=== PATIENT | female | born 1940 | race Caucasian/White ===

== ENCOUNTER 2016-12-24 09:09 | Observation (INO) | payer OTHER ==
[~2016-12-24 09:09] MED LIST: AREDS PO; DILT-XR180 MG PO; DILT-XR240 MG PO; ELIQUIS 5 MG TAB5 MG PO; L20 PO; NEUR100 PO; PRESERVISION A1 EAC1 PO; PRIN5 PO
[2016-12-24 10:00] LABS: BASOPHILS 0.5 %; BASOPHILS ABSOLUTE 0.02 10/3/uL (0.0-0.16); EOSINOPHILS 0.5 %; EOSINOPHILS ABSOLUTE 0.02 10/3/uL (0.0-0.53); HEMATOCRIT 40.6 % (36.0-48.0); HEMOGLOBIN 13.6 g/dL (12.0-16.0); IMMATURE GRANULOCYTES 0.2 %; IMMATURE GRANULOCYTES ABSOLUTE 0.01 10/3/uL (0.0-0.11); LYMPHOCYTES ABSOLUTE 1.15 10/3/uL (0.67-4.30); MEAN CORPUS HGB CONC 33.5 g/dL (32.0-36.0); MEAN CORPUSCULAR HEMOGLOB 31.8 pg (26.0-34.0); MEAN CORPUSCULAR VOLUME 94.9 fL (80-100); MEAN PLATELET VOLUME 9.5 fL (9.2-13.0); MONOCYTES 12.9 %; MONOCYTES ABSOLUTE 0.57 10/3/uL (0.21-1.20); NEUTROPHILS 59.9 %; NEUTROPHILS ABSOLUTE 2.66 10/3/uL (2.02-8.40); PLATELET COUNT 191 10/3/uL (150-400); RBC DISTRIBUTION WIDTH 13.5 % (12.0-16.0); RED CELL COUNT 4.28 10/6/uL (4.0-5.6); WHITE BLOOD CELLS 4.4 10/3/uL (4.5-10.5)
[2016-12-24 10:01] LABS: MANUAL DIFF NO %
[2016-12-24 10:18] LABS: BUN (BLOOD UREA NITROGEN) 11 MG/DL (6-23); CALCIUM, SERUM 8.8 MG/DL (8.5-10.4); CHLORIDE, SERUM 106 MMOL/L (96-112); CHOL/HDL RATIO(NOT ORDER) 2.8 (0-5); CHOLESTEROL 181 MG/DL (< 200); CO2 (CARBON DIOXIDE) 27 MMOL/L (24-34); CREATININE 0.56 MG/DL (0.55-1.02); GFR AFRICAN AMERICAN 105 ML/MIN (>=60); GFR NON AFRICAN AMERICAN 91 ML/MIN (>=60); GLUCOSE, SERUM 97 MG/DL (60-99); HDL CHOLESTEROL 64 MG/DL (> 49); LDL CHOLESTEROL 90 MG/DL (< 130); NON-HDL CHOLESTEROL 117 MG/DL (< 160); POTASSIUM, SERUM 3.9 MMOL/L (3.5-5.3); SODIUM, SERUM 141 MMOL/L (135-148); TRIGLYCERIDE 135 MG/DL (< 150)
[2016-12-25] MEDS ORDERED: CARDIZEM LA360 MG PO (10:44)
== END 2016-12-25 14:15 | disposition home or self-care (01) ==
LOC: CORLMH 09:09 → SSU1 09:27
PROVIDERS: Internal Medicine Interventional Cardiology
DX: I34.0 Nonrheumatic mitral (valve) insufficiency (principal); I50.32 Chronic diastolic (congestive) heart failure; I48.2 Chronic atrial fibrillation; I11.0 Hypertensive heart disease with heart failure; Z79.01 Long term (current) use of anticoagulants; Z79.899 Other long term (current) drug therapy
CPT/HCPCS: 80048; 80061; 82803; 85025; 93005; 93460; 99152; 99153; A9270-GY; C1769; C1894; G0378; J2250; J3010; Q9967

== ENCOUNTER 2017-03-08 05:11 | Inpatient (IN) | payer OTHER, SELFPAY ==
[2017-03-04 15:39] LABS: BASOPHILS 0.4 %; BASOPHILS ABSOLUTE 0.02 10/3/uL (0.0-0.16); EOSINOPHILS 0.6 %; EOSINOPHILS ABSOLUTE 0.03 10/3/uL (0.0-0.53); HEMATOCRIT 39.4 % (36.0-48.0); IMMATURE GRANULOCYTES 0.2 %; IMMATURE GRANULOCYTES ABSOLUTE 0.01 10/3/uL (0.0-0.11); LYMPHOCYTES 33.5 %; LYMPHOCYTES ABSOLUTE 1.81 10/3/uL (0.67-4.30); MANUAL DIFF NO %; MEAN CORPUSCULAR HEMOGLOB 31.4 pg (26.0-34.0); MEAN CORPUSCULAR VOLUME 95.2 fL (80-100); MEAN PLATELET VOLUME 9.7 fL (9.2-13.0); MONOCYTES 12.6 %; MONOCYTES ABSOLUTE 0.68 10/3/uL (0.21-1.20); NEUTROPHILS 52.7 %; NEUTROPHILS ABSOLUTE 2.86 10/3/uL (2.02-8.40); PLATELET COUNT 206 10/3/uL (150-400); RBC DISTRIBUTION WIDTH 13.4 % (12.0-16.0); RED CELL COUNT 4.14 10/6/uL (4.0-5.6); WHITE BLOOD CELLS 5.4 10/3/uL (4.5-10.5)
[2017-03-04 15:42] LABS: INTERNATIONAL NORMAL RATI 1.1 UNITS (-); PROTIME (NOT ORD) 14.4 SEC (12.0-14.5)
[2017-03-04 15:52] LABS: % IRON SAT 21 % (20-50); ALBUMIN 3.8 G/DL (3.5-5.0); ALKALINE PHOSPHATASE 98 U/L (45-117); BUN (BLOOD UREA NITROGEN) 15 MG/DL (6-23); CALCIUM, SERUM 8.8 MG/DL (8.5-10.4); CHLORIDE, SERUM 106 MMOL/L (96-112); CO2 (CARBON DIOXIDE) 29 MMOL/L (24-34); GFR AFRICAN AMERICAN 98 ML/MIN (>=60); GFR NON AFRICAN AMERICAN 84 ML/MIN (>=60); GLOBULIN 3.8 G/DL (2.5-4.1); GLUCOSE, SERUM 95 MG/DL (60-99); IRON BINDING CAPACITY 337 MCG/DL (225-410); IRON, SERUM 70 MCG/DL (35-150); POTASSIUM, SERUM 3.8 MMOL/L (3.5-5.3); SGOT(AST) 20 U/L (5-40); SGPT(ALT) 20 U/L (5-65); SODIUM, SERUM 142 MMOL/L (135-148); TOTAL BILIRUBIN 0.3 MG/DL (0-1.2); TOTAL PROTEIN 7.6 G/DL (6.0-8.5)
[2017-03-04 16:48] LABS: ASCORBIC ACID (UR NOT ORDER) 40 (NEG); BILIRUBIN, URINE NEGATIVE (NEG); KETONE, URINE NEGATIVE (NEG); LEUKOCYTE ESTERASE(NOT OR NEG (NEG); WBC (NOT ORDERED) (RFLEX) 1 (0-5)
--- NOTE | ~2017-03-08 | OP ---
Record Of Operation [facility] [address] [place]. [address] NAME: NATI VALLEJO : 40 STATUS : ADM IN [facility]#: [id number] AGE: 76 ADM/REG DATE : 03/08/17 MR#: [id number] REPORT SERV DATE: 03/09/17 DICTATED BY: LANCE SORENSEN DATE: 03/08/17 REPORT STATUS : Draft TRANSCRIBED BY: MODGurwinder DATE: 03/08/17 DATE OF PROCEDURE: 03/08/2017 PODIATRY TEACHER: Jose Singleton. ANESTHESIOLOGIST: Mateo Frances MD PREOPERATIVE DIAGNOSES: 1. Severe MR. 2. Moderate TR. 3. Chronic persistent atrial fibrillation. 4. Chronic systolic congestive heart failure. 5. Hypertension. POSTOPERATIVE DIAGNOSES: 1. Severe MR. 2. Moderate TR. 3. Chronic persistent atrial fibrillation. 4. Chronic systolic congestive heart failure. 5. Hypertension. OPERATION PROCEDURE PERFORMED: 1. Right mini thoracotomy. 2. Right femoral arterial and venous cannulation. 3. Mitral valve repair with 40 mm Physio II annuloplasty ring and cleft closure of P2-P3. 4. Tricuspid annuloplasty with 34 mm Moe annuloplasty band. 5. Ligation of left atrial appendage. 6. Transesophageal echo. COMPLICATIONS: None. TUBES AND DRAINS: A 24-Brazilian Godwin through the pericardium and 32-straight right chest tube. POSTOPERATIVE CONDITION: Stable to CVICU. The patient was weaned from cardiopulmonary bypass on 5 mcg per kilo per minute of dobutamine. Cross-clamp of 112 minutes, total cardiopulmonary bypass time of 193 minutes. INTRAOPERATIVE FINDINGS: Forme fruste mitral valve. There was a deep sub-commissure at P2- P3 and a massively enlarged tricuspid annulus on inspection. The mitral valve was somewhat difficult to interrogate after placing the retractor and filling the ventricle, the mitral valve did not appear to leak at all, felt that the valve was mostly central along its entire coaptation surface on the transesophageal echo and that there was a little bit of a deep sub commissure of P2-P3. On the echo, the P2 was coming above the annular plane more so than the remainder of the posterior leaflet, felt that this was probably going to be addressed with the annuloplasty band. Postoperative, there was mild MR and trace TR after the Record Of Operation [facility] [address] [place]. [address] NAME: ANTI VALLEJO : 40 STATUS : ADM IN [facility]#: [id number] AGE: 76 ADM/REG DATE : 03/08/17 MR#: [id number] REPORT SERV DATE: 03/09/17 DICTATED BY: LANCE SORENSEN DATE: 03/08/17 REPORT STATUS : Draft TRANSCRIBED BY: MODGurwinder DATE: 03/08/17 completion of repairs. DETAILS OF TRANSESOPHAGEAL ECHO: Transesophageal echo showed an 8 cm left atrium, a preserved EF, severe mitral regurgitation, moderate TR with an annulus of 4.1 cm. INDICATIONS FOR PROCEDURE: The patient is a 76-year-old female with a known history of severe MR who has been followed with what appears to be consistent with chronic systolic congestive heart failure. It is very symptomatic from her mitral valve disease. The patient was seen in the clinic. Risks, benefits, and alternatives were discussed including but not limited to, bleeding, infection, stroke, , heart attack, need for future operations. All questions were answered. Isolated STS score for mortality from mitral valve repair was discussed with the patient. The STS risk of mortality less than 5% was discussed and morbidity mortality less than 25% was discussed. All questions were answered. DESCRIPTION OF PROCEDURE: The patient was brought to the operating room and placed supine on the operating room table. After satisfactory induction of general endotracheal anesthesia, she was prepped and draped in the usual sterile fashion. The double-lumen ET tube had been placed by the Anesthesia Service. A 15-Brazilian bypass cannula had been placed by the Anesthesia Service in the right IJ. She was prepped and draped after positioning on a partial bump right lateral thoracotomy position. The arm was positioned at her side. All pressure points were padded. A 5 cm incision was made in the inframammary fold crossing the right anterior axillary line. Skin and subcutaneous tissues were divided. The chest wall muscles were divided in the direction of their fibers and the intercostal muscles were divided in the fourth intercostal space. Soft tissue retractor was placed and Estech retractor was placed. The diaphragm did not appear to be in the way, so no diaphragmatic retraction stitch was used. A sump sucker was placed through a stab incision of the chest wall and attention was turned to the right groin. An incision was made below the inguinal crease. Skin and subcutaneous tissues were divided. Femoral sheath was entered. Femoral artery and vein were isolated. Systemic heparinization was achieved. Pursestrings were placed on the anterior surface of both the artery and vein, and using modified Seldinger technique, the artery and vein were both cannulated, the artery with a 17-Brazilian arterial bypass cannula and the vein with a 22-Brazilian. The visualization of the guidewires was confirmed under echo with the guidewire in the middle of the aorta and the guidewire in the right atrium. Once documentation of an adequate ACT was performed, the cardiopulmonary bypass was initiated. The pericardium was then opened. Pericardial stay sutures were placed. Antegrade root vent cardioplegia tack was placed on the ascending aorta. A cross- clamp was introduced transthoracic. After cross-clamping the aorta, the heart was arrested with cold crystalloid cardioplegia for a total of 2 liters. A Sondergaard's groove was developed and opened. A minimally invasive retractor was placed and the valve was inspected. The valve was difficult to inspect secondary to not being much leak once the valve was loaded, and felt based on the echo that it was best to close the deep sub- commissure and provide an annuloplasty band complete ring. Sutures were placed around the annulus of the valve. The valve was sized to a 40 mm Physio II ring. A deep sub-commissure or cleft at P2-P3 was closed with 5-0 [place]ars. Valve sutures were then placed through the sewing ring of the annuloplasty ring. The ring was lowered into place and then anchored using 14 Cor-Knots. Valve was again interrogated, this was felt to be trivial leak, central leak. The left atrial appendage was then closed from the inside using a double layer of 5-0 Record Of Operation [facility] [id number] [facility] [place]. [address] NAME: NATI VALLEJO : 40 STATUS : ADM IN [facility]#: [id number] AGE: 76 ADM/REG DATE : 03/08/17 MR#: [id number] REPORT SERV DATE: 03/09/17 DICTATED BY: LANCE SORENSEN DATE: 03/08/17 REPORT STATUS : Draft TRANSCRIBED BY: MODGurwinder DATE: 03/08/17 [place]. A Tello was placed across the valve to use as a left ventricular vent and the left arteriotomy was closed with a double layer of 3-0 [place]. The caval tapes had been applied. The caval tapes were tightened and ensured complete bypass, and the right atriotomy was performed, this was the lateral right atriotomy. Retractor was placed and the tricuspid valve was visualized. The tricuspid valve had a significantly large annulus, it was sized along the septum to a 34 mm Moe annuloplasty ring. Sutures were placed along the anterior and posterior leaflets in the annulus and then passed through the sewing ring of the Moe band. The Moe band was lowered into position and then anchored using Cor-Knot. The valve had minimal leak following this. Caval tapes were released and the de- airing maneuvers were performed and the cross-clamp was then removed. The patient returned with ventricular escape rhythm and then later to a slow sinus rhythm. The right atriotomy was then closed using double layer of 4-0 [place]. Ventricular pacing wires were placed and exteriorized through the Jelco that would have been used for insufflation of CO2. The heart was interrogated with echocardiography and echocardiography showed that there was mild MR and trace TR with preserved ventricular function. She was ultimately weaned from cardiopulmonary bypass. The antegrade root vent cardioplegia tack was removed and area was oversewn with pledgeted 2-0 Tycron. Hemostasis was obtained. Protamine was administered. All cannulation sites and atriotomies were deemed to be hemostatic. After the protamine was administered, the femoral artery and vein were decannulated. The pursestring was tied down on the vein with excellent hemostasis. Pursestring was tightened on the artery, two DeBakey clamps were then used, pursestring was removed, and arteriotomy was closed using interrupted 6-0 Prolene. Pericardium was loosely reapproximated using 2-0 Vicryl. A 24-Brazilian Godwin was placed in the pericardium and exteriorized. A 32-Brazilian chest tube was placed to the apex and exteriorized. After hemostasis, the chest was closed with #2 Vicryl, 0 Vicryl, 2-0 Vicryl, 4-0 Monocryl, dry sterile dressings were placed. The groin was closed with 0 Vicryl, 2-0 Vicryl, 3-0 Vicryl. The patient was transferred to the CVICU in critical, stable condition. TONJA/DANIEL Lance Sorensen MD / [id number] CC: MD Mckinley Beltrán M.D.
--- NOTE | ~2017-03-08 | CN ---
Consultation Report [facility] [address] [place]. [address] NAME: NATI LAYTON : 40 STATUS : ADM IN [facility]#: [id number] AGE: 76 ADM/REG DATE : 03/08/17 MR#: [id number] REPORT SERV DATE: 03/10/17 DICTATED BY: CORY TERRY DATE: 03/10/17 REPORT STATUS : Draft TRANSCRIBED BY: MODGurwinder DATE: 03/10/17 NEPHROLOGY CONSULTATION DATE OF CONSULTATION: 03/10/2017 INDICATION FOR CONSULTATION: Acute kidney injury. HISTORY OF PRESENT ILLNESS: Ms. Layton is a 76-year-old female, who is seen for acute kidney injury following mitral valve repair, tricuspid valve repair, and left atrial ligation performed on 03/08/2017. The patient had previously undergone outpatient evaluation for shortness of breath and was found to have severe mitral regurgitation, moderate tricuspid regurgitation, and chronic atrial fibrillation. Her creatinine has risen from 0.56 to 1.36 with a positive fluid balance. She is noted to be afebrile, but has leukocytosis and has ongoing hypotension postoperatively. She presently is having transition from dobutamine to Levophed for blood pressure support. She has had poor response to albumin and Bumex. The patient denies any use of nonsteroidal anti-inflammatory drugs and was on lisinopril prior to admission, but has not received this during hospitalization. PAST MEDICAL HISTORY: Mitral regurgitation, tricuspid regurgitation, atrial fibrillation, seizure disorder with no recurrence in 50 years, hypertension, rheumatoid arthritis. PAST SURGICAL HISTORY: Bilateral cataract removal and lens implant, benign tumor removed from breast. FAMILY HISTORY: Positive for heart disease in daughter, diabetes in daughter. Positive for hypertension. No end-stage renal disease. SOCIAL HISTORY: The patient is with supportive family, having six children. Uses no alcohol, tobacco products, or illicit drugs. 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 ALLERGIES: NONE KNOWN. HOME MEDICATIONS: Eliquis, Cardizem, Lasix, Prinivil, PreserVision. REVIEW OF SYSTEMS: HEENT: No change in visual acuity. No epistaxis. No otic infection. No pharyngitis. PULMONARY: Has had shortness of breath. No hemoptysis, but does have intermittent cough. CARDIAC: Denies chest pain and lower extremity edema. GI: No nausea, vomiting, or melena. : No gross hematuria, dysuria, or pyuria. MUSCULOSKELETAL: Pain in shoulders, knees, back. INTEGUMENT: No rash. Does have dry skin. No itching. NEUROLOGIC: Remote seizure history, none x50 years. No lateralizing weakness. Consultation Report [facility] [id number] [place]. [address] NAME: NATI LAYTON : 40 STATUS : ADM IN [facility]#: [id number] AGE: 76 ADM/REG DATE : 03/08/17 MR#: [id number] REPORT SERV DATE: 03/10/17 DICTATED BY: CORY TERRY DATE: 03/10/17 REPORT STATUS : Draft TRANSCRIBED BY: DANIEL DATE: 03/10/17 Remainder of 12-point review of systems negative. PHYSICAL EXAMINATION: GENERAL: Elderly, chronically ill-appearing female. VITAL SIGNS: Blood pressure 89/52, temperature 97.7, respiratory rate 12, pulse 79. HEENT: Eyes, no scleral icterus. Pupils equal and reactive to light. Extraocular movement intact. Nares patent. No lesions. No drainage. Throat, no injection. Mucous membranes moist. NECK: No thyromegaly, masses, or bruits. CHEST/LUNGS: Late crackles posteriorly. No wheezing. CARDIAC: Regular rate and rhythm. Unable to appreciate murmur, gallop, or rub. ABDOMEN: Supple. Normoactive bowel sounds. Nontender. No hepatosplenomegaly. No masses. BREASTS: Not performed. PELVIC: Not performed. RECTAL: Not performed. EXTREMITIES: No edema. No calf tenderness. DERMIS: No rash. No skin lesions. MUSCULOSKELETAL: No deformity. No joint tenderness, except right shoulder which is painful on movement. NEUROLOGIC: Cranial nerves intact. No lateralizing weakness. IMPRESSION: 1. Acute kidney injury, likely secondary to hypoperfusion/hypotension, consistent with acute tubular necrosis. Monitor for infection. No nephrotoxic medications noted. 2. Status post mitral valve repair, tricuspid valve repair, left atrial ligation. 3. Atrial fibrillation. 4. Current hypotension, on Levophed. 5. Seizure disorder. 6. History of hypertension. 7. Rheumatoid arthritis by history. 8. Anemia. 9. Thrombocytopenia. PLAN: Stabilize blood pressure with medication adjustments. Labs. Also, as per diuretics pending medication changes. CG/DANIEL Cory Terry M.D. / [id number] Consultation Report [address] [place]. [address] NAME: NATI LAYTON : 40 STATUS : ADM IN PAT#: [id number] AGE: 76 ADM/REG DATE : 03/08/17 MR#: [id number] REPORT SERV DATE: 03/10/17 DICTATED BY: CORY TERRY DATE: 03/10/17 REPORT STATUS : Draft TRANSCRIBED BY: DANIEL DATE: 03/10/17 CC: MD Mckinley Beltrán M.D.
--- NOTE | ~2017-03-08 | DS ---
Discharge Summary [facility] [address] [place]. [address] NAME: NATI VALLEJO : 40 STATUS : DIS IN PAT#: [id number] AGE: 76 ADM/REG DATE : 03/08/17 MR#: [id number] REPORT SERV DATE: 05/29/17 DICTATED BY: ERIC SORENSEN DATE: 05/28/17 REPORT STATUS : Draft TRANSCRIBED BY: DANIEL DATE: 05/28/17 Data Collection from hospitalization DISCHARGE DIAGNOSES: 1. Mitral regurgitation, status post repair. 2. Tricuspid regurgitation status post repair. 3. Chronic atrial fibrillation, status post ligation of left atrial appendage. 4. Left pleural effusion. 5. Hypertension. 6. Hypokalemia. 7. Seizure disorder. 8. Rheumatoid arthritis. CONSULTATIONS: Vito Macias M.D., Dr. Alxe Johns. PROCEDURES PERFORMED: 1. Right minithoracotomy, right femoral arterial, and venous cannulation, mitral valve repair with 40 mm Physio II annuloplasty ring and cleft closure at T2-T3. Tricuspid annuloplasty with 34 mm Moe annuloplasty band, ligation of left atrial appendage, transesophageal echocardiogram, 03/08/2017. 2. Renal ultrasound, 03/11/2017. 3. Ultrasound-guided left thoracentesis, 03/15/2017. MEDICATIONS: Eliquis 5 mg twice a day as instructed, vitamin C 1000 mg twice a day, Halfprin 81 mg daily, Lipitor 40 mg at bedtime, Cardizem CD 180 mg daily, Lasix 20 mg daily, Lopressor 25 mg twice a day, Senokot two tablets twice a day as needed for constipation, Tylenol 650 mg every four hours as needed, Mylanta 30 mL as needed, Dulcolax 10 mg per rectum as needed, milk of magnesia 30 mL at bedtime as needed, Ultram 50 mg to 100 mg every four hours as needed, Roxicodone 5 mg to 10 mg every four hours as needed, prednisone 10 mg taper as instructed. CONDITION AT DISCHARGE: Stable. DISPOSITION: The patient was discharged to [facility] on a cardiac diet with activities as instructed. HOSPITAL COURSE: This is a 76-year-old female who has a history of severe mitral regurgitation who has been followed with what appears to be consistent with chronic systolic congestive heart failure. It was very symptomatic from her mitral valve disease. She had been seen in the clinic. Treatment options were discussed and it was elected to proceed with surgical intervention. She was admitted to the hospital at this time for further evaluation and treatment. Upon admission, she was taken to the operating room where she underwent the above-mentioned procedure. She tolerated this well. There were no complications. On postop day #1, chest x-ray was clear. She was seen by Dr. Alex Johns. She said she felt sore. She had no shortness of breath. The patient does have atrial fibrillation with rapid ventricular response. This was felt to be secondary to dobutamine drip. This was going to be weaned. Discharge Summary [address] [place]. [address] NAME: NATI VALLEJO : 40 STATUS : DIS IN PAT#: [id number] AGE: 76 ADM/REG DATE : 03/08/17 MR#: [id number] REPORT SERV DATE: 05/29/17 DICTATED BY: ERIC SORESNEN DATE: 05/28/17 REPORT STATUS : Draft TRANSCRIBED BY: DANIEL DATE: 05/28/17 On postop day #2, she did have some right-sided chest pain. She was doing well. Creatinine level had increased to 1.36. She had no edema. She remained afebrile. She was seen in consultation by Dr. Vito Macias regarding acute kidney injury. Her creatinine has risen to 1.36 with a positive fluid balance. She did have leukocytosis and ongoing hypotension postoperatively. She was presently being transitioned from dobutamine and Levophed for blood pressure support. She had a poor response to albumin and Bumex. She denies any use of nonsteroidal antiinflammatory drugs. She had been on lisinopril prior to admission, but had not received it during this hospitalization. We would stabilize her blood pressure with medication adjustment. Her acute kidney injury was felt likely secondary to hypoperfusion/hypotension consistent with acute tubular necrosis. Home nephrotoxic medications were noted. On 03/11/2017, her lungs were clear. Her incisions looked okay. She had no edema. She remained on Levophed and dobutamine. Urine output had increased. Creatinine level was 2.29. Pacing wires were removed. She was evaluated by Occupational and Physical Therapy. The next day, her creatinine level was normalizing. She had good urine output. Hypotension had resolved. She had no chest pain or shortness of breath. She had no edema. Amiodarone was discontinued. A renal ultrasound had been performed. She had no edema. She was found to have a left pleural effusion. It was felt that she may need to undergo a thoracentesis. She was ambulating. Potassium supplementation was given. On 03/15/2017, she had no shortness of breath, chest pain, or palpitations. She was using her walker. The patient underwent ultrasound-guided thoracentesis on the left. 250 mL of fluid was obtained. On 03/16/2017, she denied any pain. She remained in atrial fibrillation. Eliquis had been started back. She continued to do well. Discharge planning was performed. We encouraged her to ambulate. On 03/18/2017, she was feeling good. She had no complaint. Chest x-ray was stable. Discharge instructions were given. Due to her improved and stable condition, she was discharged to [email or web address] with the above-stated instructions. Information collected by: Samara Santizo I submit the above information as my discharge summary. TG/MODL Eric Sorensen MD / [id number] CC: Eric Sorensen MD [facility] [place],Estiven Jane M.D. [facility]
[~2017-03-08 05:11] MED LIST changes: +CARDIZEM LA360 MG PO
[2017-03-08 17:05] LABS: CARBOXYHEMOGLOBIN 0.3 % (0-3); HCO3 (ACTUAL BICARBONATE) 20.8 MEQ/L (23-27); HEMOBLOGIN CONTENT 11.8 G/DL (12-16); INSTRUMENT SERIAL # 11843; METHEMOGLOBIN 0.6 % (0-3); MODE SIMV; O2 CONTENT 16.8 VOL% (18-24); OPERATOR ID 19104; PCO2 (CO2 TENSION) 41 MMHG (35-45); PO2 (O2 TENSION) 226 MMHG (79-93); SAMPLE Arterial; TIDAL VOLUME 500 ML; pH 7.32 (7.37-7.43)
[2017-03-08 18:06] LABS: HEMOGLOBIN 10.9 g/dL (12.0-16.0)
[2017-03-08 18:07] LABS: HEMATOCRIT 33.1 % (36.0-48.0); PLATELET COUNT 130 10/3/uL (150-400)
[2017-03-08 18:12] LABS: BUN (BLOOD UREA NITROGEN) 13 MG/DL (6-23); CALCIUM, SERUM 8.4 MG/DL (8.5-10.4); CHLORIDE, SERUM 110 MMOL/L (96-112); CREATININE 0.91 MG/DL (0.55-1.02); GFR AFRICAN AMERICAN 71 ML/MIN (>=60); GFR NON AFRICAN AMERICAN 61 ML/MIN (>=60); GLUCOSE, SERUM 96 MG/DL (60-99); SODIUM, SERUM 143 MMOL/L (135-148)
[2017-03-08 18:13] LABS: CO2 (CARBON DIOXIDE) 22 MMOL/L (24-34); POTASSIUM, SERUM 4.6 MMOL/L (3.5-5.3)
[2017-03-08 18:26] LABS: FIBRINOGEN 216 MG/DL (230-462); INTERNATIONAL NORMAL RATI 1.7 UNITS (-); PARTIAL THROMBO TIME 32.7 SEC (22.5-37.2)
[2017-03-08 21:15] LABS: BE (BASE EXCESS) -1.7 MEQ/L (0 +/- 2.5); DEVICE NC; HCO3 (ACTUAL BICARBONATE) 22.7 MEQ/L (23-27); HEMOBLOGIN CONTENT 12.3 G/DL (12-16); INSTRUMENT SERIAL # 11843; METHEMOGLOBIN 0.4 % (0-3); O2 CONTENT 16.2 VOL% (18-24); OPERATOR ID 32193; PCO2 (CO2 TENSION) 37 MMHG (35-45); PO2 (O2 TENSION) 72 MMHG (79-93); SAMPLE Arterial
[2017-03-08 22:19] LABS: HEMATOCRIT 32.1 % (36.0-48.0); HEMOGLOBIN 10.7 g/dL (12.0-16.0)
[2017-03-08 22:28] LABS: POTASSIUM, SERUM 3.6 MMOL/L (3.5-5.3)
[2017-03-09 03:32] LABS: BASOPHILS 0 %; EOSINOPHILS 0 %; HEMATOCRIT 31.9 % (36.0-48.0); HEMOGLOBIN 10.6 g/dL (12.0-16.0); IMMATURE GRANULOCYTES 0.2 %; IMMATURE GRANULOCYTES ABSOLUTE 0.01 10/3/uL (0.0-0.11); LYMPHOCYTES 8.3 %; LYMPHOCYTES ABSOLUTE 0.55 10/3/uL (0.67-4.30); MEAN CORPUS HGB CONC 33.2 g/dL (32.0-36.0); MEAN CORPUSCULAR HEMOGLOB 31.6 pg (26.0-34.0); MEAN CORPUSCULAR VOLUME 95.2 fL (80-100); MEAN PLATELET VOLUME 10.2 fL (9.2-13.0); MONOCYTES 7.5 %; NEUTROPHILS ABSOLUTE 5.59 10/3/uL (2.02-8.40); PLATELET COUNT 101 10/3/uL (150-400); RBC DISTRIBUTION WIDTH 13.4 % (12.0-16.0); RED CELL COUNT 3.35 10/6/uL (4.0-5.6); WHITE BLOOD CELLS 6.7 10/3/uL (4.5-10.5)
[2017-03-09 03:37] LABS: MANUAL DIFF NO %
[2017-03-09 03:44] LABS: CALCIUM, SERUM 8.5 MG/DL (8.5-10.4); CHLORIDE, SERUM 116 MMOL/L (96-112); CO2 (CARBON DIOXIDE) 26 MMOL/L (24-34); CREATININE 0.56 MG/DL (0.55-1.02); GFR AFRICAN AMERICAN 105 ML/MIN (>=60); GFR NON AFRICAN AMERICAN 91 ML/MIN (>=60); INTERNATIONAL NORMAL RATI 1.4 UNITS (-); SODIUM, SERUM 150 MMOL/L (135-148)
[2017-03-09 03:45] LABS: BUN (BLOOD UREA NITROGEN) 19 MG/DL (6-23); GLUCOSE, SERUM 84 MG/DL (60-99); POTASSIUM, SERUM 4.4 MMOL/L (3.5-5.3)
[2017-03-09 03:54] LABS: PROTIME (NOT ORD) 16.8 SEC (12.0-14.5)
[2017-03-09 16:43] LABS: HEMATOCRIT 30.7 % (36.0-48.0); HEMOGLOBIN 10.2 g/dL (12.0-16.0)
[2017-03-09 16:56] LABS: POTASSIUM, SERUM 4.1 MMOL/L (3.5-5.3)
[2017-03-10 03:27] LABS: BASOPHILS 0 %; EOSINOPHILS 0 %; HEMATOCRIT 31.2 % (36.0-48.0); HEMOGLOBIN 10.1 g/dL (12.0-16.0); IMMATURE GRANULOCYTES 0.4 %; LYMPHOCYTES 5.2 %; LYMPHOCYTES ABSOLUTE 1.16 10/3/uL (0.67-4.30); MEAN CORPUS HGB CONC 32.4 g/dL (32.0-36.0); MEAN CORPUSCULAR HEMOGLOB 31.6 pg (26.0-34.0); MEAN CORPUSCULAR VOLUME 97.5 fL (80-100); MEAN PLATELET VOLUME 10.2 fL (9.2-13.0); MONOCYTES 8.7 %; MONOCYTES ABSOLUTE 1.93 10/3/uL (0.21-1.20); NEUTROPHILS 85.7 %; NEUTROPHILS ABSOLUTE 19.09 10/3/uL (2.02-8.40); PLATELET COUNT 114 10/3/uL (150-400); RBC DISTRIBUTION WIDTH 14.1 % (12.0-16.0)
[2017-03-10 03:29] LABS: MANUAL DIFF NO %; WHITE BLOOD CELLS 22.3 10/3/uL (4.5-10.5)
[2017-03-10 03:40] LABS: CALCIUM, SERUM 8.5 MG/DL (8.5-10.4); CHLORIDE, SERUM 109 MMOL/L (96-112); POTASSIUM, SERUM 4.7 MMOL/L (3.5-5.3)
[2017-03-10 03:52] LABS: BUN (BLOOD UREA NITROGEN) 36 MG/DL (6-23); CO2 (CARBON DIOXIDE) 19 MMOL/L (24-34); CREATININE 1.36 MG/DL (0.55-1.02); GFR AFRICAN AMERICAN 44 ML/MIN (>=60); GFR NON AFRICAN AMERICAN 38 ML/MIN (>=60); GLUCOSE, SERUM 211 MG/DL (60-99); SODIUM, SERUM 140 MMOL/L (135-148)
[2017-03-10 16:11] LABS: CALCIUM, SERUM 8.1 MG/DL (8.5-10.4); CHLORIDE, SERUM 107 MMOL/L (96-112); CO2 (CARBON DIOXIDE) 20 MMOL/L (24-34); GFR AFRICAN AMERICAN 23 ML/MIN (>=60); GFR NON AFRICAN AMERICAN 19 ML/MIN (>=60); GLUCOSE, SERUM 187 MG/DL (60-99); SODIUM, SERUM 138 MMOL/L (135-148)
[2017-03-10 16:12] LABS: BUN (BLOOD UREA NITROGEN) 47 MG/DL (6-23); CREATININE 2.35 MG/DL (0.55-1.02)
[2017-03-10 23:43] LABS: BUN (BLOOD UREA NITROGEN) 50 MG/DL (6-23); CALCIUM, SERUM 8.9 MG/DL (8.5-10.4); CHLORIDE, SERUM 108 MMOL/L (96-112); CO2 (CARBON DIOXIDE) 20 MMOL/L (24-34); CREATININE 2.46 MG/DL (0.55-1.02); GFR AFRICAN AMERICAN 21 ML/MIN (>=60); GFR NON AFRICAN AMERICAN 18 ML/MIN (>=60); GLUCOSE, SERUM 178 MG/DL (60-99); POTASSIUM, SERUM 5.3 MMOL/L (3.5-5.3); SODIUM, SERUM 138 MMOL/L (135-148)
[2017-03-11 03:38] LABS: BASOPHILS 0.1 %; BASOPHILS ABSOLUTE 0.01 10/3/uL (0.0-0.16); EOSINOPHILS 0 %; HEMATOCRIT 31.9 % (36.0-48.0); HEMOGLOBIN 10.1 g/dL (12.0-16.0); IMMATURE GRANULOCYTES 0.5 %; IMMATURE GRANULOCYTES ABSOLUTE 0.09 10/3/uL (0.0-0.11); LYMPHOCYTES 8.3 %; MANUAL DIFF NO %; MEAN CORPUS HGB CONC 31.7 g/dL (32.0-36.0); MEAN CORPUSCULAR HEMOGLOB 31.5 pg (26.0-34.0); MEAN CORPUSCULAR VOLUME 99.4 fL (80-100); MEAN PLATELET VOLUME 10.5 fL (9.2-13.0); MONOCYTES 9.2 %; MONOCYTES ABSOLUTE 1.66 10/3/uL (0.21-1.20); NEUTROPHILS 81.9 %; NEUTROPHILS ABSOLUTE 14.88 10/3/uL (2.02-8.40); PLATELET COUNT 101 10/3/uL (150-400); RED CELL COUNT 3.21 10/6/uL (4.0-5.6); WHITE BLOOD CELLS 18.1 10/3/uL (4.5-10.5)
[2017-03-11 03:41] LABS: INTERNATIONAL NORMAL RATI 1.4 UNITS (-); PROTIME (NOT ORD) 17.1 SEC (12.0-14.5)
[2017-03-11 03:50] LABS: ALBUMIN 4.3 G/DL (3.5-5.0); BUN (BLOOD UREA NITROGEN) 50 MG/DL (6-23); CALCIUM, SERUM 8.7 MG/DL (8.5-10.4); CHLORIDE, SERUM 106 MMOL/L (96-112); CO2 (CARBON DIOXIDE) 21 MMOL/L (24-34); CREATININE 2.29 MG/DL (0.55-1.02); GFR AFRICAN AMERICAN 23 ML/MIN (>=60); GFR NON AFRICAN AMERICAN 20 ML/MIN (>=60); GLUCOSE, SERUM 176 MG/DL (60-99); PHOSPHORUS, SERUM 5.2 MG/DL (2.5-4.5); POTASSIUM, SERUM 4.7 MMOL/L (3.5-5.3); SODIUM, SERUM 136 MMOL/L (135-148)
[2017-03-11 05:26] LABS: CREATININE (RANDOM URINE) 60.8 MG/DL; CREATININE, URINE 60.8 MG/DL; MICROALBUMIN, RANDOM URINE 5.3 MG/DL
[2017-03-11 06:36] LABS: PROCALCITONIN 5.68 ng/mL (<0.5)
[2017-03-11 08:58] LABS: T PROTEIN (ELECT)(NOT OR 6.3 G/DL (6.0-8.5)
[2017-03-11 16:32] LABS: BUN (BLOOD UREA NITROGEN) 52 MG/DL (6-23); CALCIUM, SERUM 8.6 MG/DL (8.5-10.4); CHLORIDE, SERUM 105 MMOL/L (96-112); CO2 (CARBON DIOXIDE) 22 MMOL/L (24-34); CREATININE 1.69 MG/DL (0.55-1.02); GFR AFRICAN AMERICAN 34 ML/MIN (>=60); GFR NON AFRICAN AMERICAN 29 ML/MIN (>=60); GLUCOSE, SERUM 160 MG/DL (60-99); SODIUM, SERUM 138 MMOL/L (135-148)
[2017-03-12 03:53] LABS: BASOPHILS 0 %; EOSINOPHILS 0 %; HEMOGLOBIN 9.4 g/dL (12.0-16.0); IMMATURE GRANULOCYTES 0.7 %; IMMATURE GRANULOCYTES ABSOLUTE 0.06 10/3/uL (0.0-0.11); LYMPHOCYTES 12.7 %; LYMPHOCYTES ABSOLUTE 1.14 10/3/uL (0.67-4.30); MEAN CORPUS HGB CONC 32.8 g/dL (32.0-36.0); MEAN CORPUSCULAR HEMOGLOB 31.9 pg (26.0-34.0); MEAN CORPUSCULAR VOLUME 97.3 fL (80-100); MEAN PLATELET VOLUME 10.5 fL (9.2-13.0); MONOCYTES 10.7 %; MONOCYTES ABSOLUTE 0.96 10/3/uL (0.21-1.20); NEUTROPHILS 75.9 %; NEUTROPHILS ABSOLUTE 6.85 10/3/uL (2.02-8.40); PLATELET COUNT 78 10/3/uL (150-400); RBC DISTRIBUTION WIDTH 13.7 % (12.0-16.0); RED CELL COUNT 2.95 10/6/uL (4.0-5.6)
[2017-03-12 04:02] LABS: CALCIUM, SERUM 8.3 MG/DL (8.5-10.4); CHLORIDE, SERUM 106 MMOL/L (96-112); CO2 (CARBON DIOXIDE) 26 MMOL/L (24-34); POTASSIUM, SERUM 4.2 MMOL/L (3.5-5.3); SODIUM, SERUM 144 MMOL/L (135-148)
[2017-03-12 04:03] LABS: BUN (BLOOD UREA NITROGEN) 46 MG/DL (6-23); CREATININE 1.05 MG/DL (0.55-1.02); GFR AFRICAN AMERICAN 60 ML/MIN (>=60); GFR NON AFRICAN AMERICAN 52 ML/MIN (>=60); GLUCOSE, SERUM 123 MG/DL (60-99)
[2017-03-12 04:10] LABS: HEMATOCRIT 28.7 % (36.0-48.0); MANUAL DIFF NO %
[2017-03-12 07:00] LABS: PLATELET ESTIMATE DEC (ADEQUATE)
[2017-03-12 07:01] LABS: RBC MORPHOLOGY NORM (NORMAL)
[2017-03-12 12:11] LABS: ALB RELATIVE % 71.4 % (60.0-89.0); ALPHA 1 (ELECTRO) 0.23 GM/DL (0.1-0.4); ALPHA 1 RELAT % (NOT ORD) 3.7 % (1.0-4.0); ALPHA 2 RELAT % 9.6 % (4.5-26.0); BETA GLOBULIN (SPE) 0.49 GM/DL (0.60-1.30); BETA RELATIVE % 7.7 % (9.0-22.0); GAMMA GLOBULIN (SPE) 0.48 G/DL (0.70-1.60); GAMMA RELAT % 7.6 % (6.0-22.0)
[2017-03-13 04:34] LABS: BASOPHILS 0.1 %; BASOPHILS ABSOLUTE 0.01 10/3/uL (0.0-0.16); EOSINOPHILS 0 %; HEMATOCRIT 30.7 % (36.0-48.0); HEMOGLOBIN 10.1 g/dL (12.0-16.0); IMMATURE GRANULOCYTES 0.8 %; IMMATURE GRANULOCYTES ABSOLUTE 0.07 10/3/uL (0.0-0.11); LYMPHOCYTES 14.3 %; LYMPHOCYTES ABSOLUTE 1.33 10/3/uL (0.67-4.30); MEAN CORPUS HGB CONC 32.9 g/dL (32.0-36.0); MEAN CORPUSCULAR VOLUME 97.2 fL (80-100); MEAN PLATELET VOLUME 10.5 fL (9.2-13.0); MONOCYTES 9.3 %; MONOCYTES ABSOLUTE 0.87 10/3/uL (0.21-1.20); NEUTROPHILS 75.5 %; NEUTROPHILS ABSOLUTE 7.03 10/3/uL (2.02-8.40); RBC DISTRIBUTION WIDTH 13.5 % (12.0-16.0); RED CELL COUNT 3.16 10/6/uL (4.0-5.6); WHITE BLOOD CELLS 9.3 10/3/uL (4.5-10.5)
[2017-03-13 04:36] LABS: CALCIUM, SERUM 8.9 MG/DL (8.5-10.4); CHLORIDE, SERUM 108 MMOL/L (96-112); CO2 (CARBON DIOXIDE) 27 MMOL/L (24-34); GFR AFRICAN AMERICAN 106 ML/MIN (>=60); GFR NON AFRICAN AMERICAN 91 ML/MIN (>=60); GLUCOSE, SERUM 123 MG/DL (60-99); POTASSIUM, SERUM 4.1 MMOL/L (3.5-5.3); SODIUM, SERUM 144 MMOL/L (135-148)
[2017-03-13 04:37] LABS: MANUAL DIFF NO %; PLATELET COUNT 104 10/3/uL (150-400)
[2017-03-13 04:38] LABS: BUN (BLOOD UREA NITROGEN) 25 MG/DL (6-23); CREATININE 0.55 MG/DL (0.55-1.02)
[2017-03-14 04:22] LABS: BASOPHILS 0.1 %; BASOPHILS ABSOLUTE 0.01 10/3/uL (0.0-0.16); EOSINOPHILS 0.4 %; EOSINOPHILS ABSOLUTE 0.03 10/3/uL (0.0-0.53); HEMATOCRIT 29.4 % (36.0-48.0); HEMOGLOBIN 9.7 g/dL (12.0-16.0); IMMATURE GRANULOCYTES ABSOLUTE 0.08 10/3/uL (0.0-0.11); LYMPHOCYTES 20.7 %; LYMPHOCYTES ABSOLUTE 1.72 10/3/uL (0.67-4.30); MANUAL DIFF NO %; MEAN CORPUSCULAR HEMOGLOB 31.8 pg (26.0-34.0); MEAN CORPUSCULAR VOLUME 96.4 fL (80-100); MEAN PLATELET VOLUME 10.1 fL (9.2-13.0); MONOCYTES 11.8 %; MONOCYTES ABSOLUTE 0.98 10/3/uL (0.21-1.20); NEUTROPHILS ABSOLUTE 5.49 10/3/uL (2.02-8.40); PLATELET COUNT 121 10/3/uL (150-400); RBC DISTRIBUTION WIDTH 13.6 % (12.0-16.0); RED CELL COUNT 3.05 10/6/uL (4.0-5.6); WHITE BLOOD CELLS 8.3 10/3/uL (4.5-10.5)
[2017-03-14 04:35] LABS: CALCIUM, SERUM 8.5 MG/DL (8.5-10.4); CHLORIDE, SERUM 105 MMOL/L (96-112); CREATININE 0.61 MG/DL (0.55-1.02); GFR AFRICAN AMERICAN 102 ML/MIN (>=60); GFR NON AFRICAN AMERICAN 88 ML/MIN (>=60); GLUCOSE, SERUM 100 MG/DL (60-99); POTASSIUM, SERUM 3.4 MMOL/L (3.5-5.3); SODIUM, SERUM 143 MMOL/L (135-148)
[2017-03-14 04:38] LABS: BUN (BLOOD UREA NITROGEN) 17 MG/DL (6-23); CO2 (CARBON DIOXIDE) 32 MMOL/L (24-34)
[2017-03-14 10:36] LABS: INTERNATIONAL NORMAL RATI 3.5 UNITS (-); PARTIAL THROMBO TIME 23.3 SEC (22.5-37.2); PROTIME (NOT ORD) 34.8 SEC (12.0-14.5)
[2017-03-15 04:56] LABS: BASOPHILS 0.1 %; BASOPHILS ABSOLUTE 0.01 10/3/uL (0.0-0.16); EOSINOPHILS 0.3 %; EOSINOPHILS ABSOLUTE 0.03 10/3/uL (0.0-0.53); HEMATOCRIT 29.9 % (36.0-48.0); IMMATURE GRANULOCYTES 1.3 %; IMMATURE GRANULOCYTES ABSOLUTE 0.12 10/3/uL (0.0-0.11); LYMPHOCYTES 13.2 %; LYMPHOCYTES ABSOLUTE 1.21 10/3/uL (0.67-4.30); MEAN CORPUS HGB CONC 33.4 g/dL (32.0-36.0); MEAN CORPUSCULAR HEMOGLOB 31.9 pg (26.0-34.0); MEAN CORPUSCULAR VOLUME 95.5 fL (80-100); MEAN PLATELET VOLUME 9.9 fL (9.2-13.0); MONOCYTES 11.6 %; MONOCYTES ABSOLUTE 1.06 10/3/uL (0.21-1.20); NEUTROPHILS 73.5 %; NEUTROPHILS ABSOLUTE 6.71 10/3/uL (2.02-8.40); PLATELET COUNT 135 10/3/uL (150-400); RBC DISTRIBUTION WIDTH 13.4 % (12.0-16.0); RED CELL COUNT 3.13 10/6/uL (4.0-5.6); WHITE BLOOD CELLS 9.1 10/3/uL (4.5-10.5)
[2017-03-15 04:58] LABS: MANUAL DIFF NO %
[2017-03-15 05:08] LABS: INTERNATIONAL NORMAL RATI 1.4 UNITS (-)
[2017-03-15 05:11] LABS: BUN (BLOOD UREA NITROGEN) 17 MG/DL (6-23); CALCIUM, SERUM 8.5 MG/DL (8.5-10.4); CHLORIDE, SERUM 104 MMOL/L (96-112); CO2 (CARBON DIOXIDE) 32 MMOL/L (24-34); CREATININE 0.63 MG/DL (0.55-1.02); DIRECT BILIRUBIN 0.2 MG/DL (0.0-0.4); GFR AFRICAN AMERICAN 101 ML/MIN (>=60); GFR NON AFRICAN AMERICAN 87 ML/MIN (>=60); GLUCOSE, SERUM 97 MG/DL (60-99); POTASSIUM, SERUM 3.7 MMOL/L (3.5-5.3); SGOT(AST) 20 U/L (5-40); SGPT(ALT) 27 U/L (5-65); SODIUM, SERUM 143 MMOL/L (135-148)
[2017-03-15 05:12] LABS: PROTIME (NOT ORD) 16.7 SEC (12.0-14.5)
[2017-03-15 05:15] LABS: ALBUMIN 3.1 G/DL (3.5-5.0); TOTAL PROTEIN 5.6 G/DL (6.0-8.5)
[2017-03-15 05:16] LABS: ALKALINE PHOSPHATASE 52 U/L (45-117); INDIRECT BILIRUBIN(NOT ORDER) 0.6 MG/DL (0.1-0.9); TOTAL BILIRUBIN 0.8 MG/DL (0-1.2)
[2017-03-16 05:08] LABS: BASOPHILS 0.1 %; BASOPHILS ABSOLUTE 0.01 10/3/uL (0.0-0.16); EOSINOPHILS 0.6 %; EOSINOPHILS ABSOLUTE 0.05 10/3/uL (0.0-0.53); HEMATOCRIT 32.1 % (36.0-48.0); HEMOGLOBIN 10.7 g/dL (12.0-16.0); IMMATURE GRANULOCYTES 1.2 %; LYMPHOCYTES 17.2 %; LYMPHOCYTES ABSOLUTE 1.46 10/3/uL (0.67-4.30); MEAN CORPUS HGB CONC 33.3 g/dL (32.0-36.0); MEAN CORPUSCULAR HEMOGLOB 31.9 pg (26.0-34.0); MEAN CORPUSCULAR VOLUME 95.8 fL (80-100); MEAN PLATELET VOLUME 9.4 fL (9.2-13.0); MONOCYTES 11.5 %; MONOCYTES ABSOLUTE 0.98 10/3/uL (0.21-1.20); NEUTROPHILS 69.4 %; NEUTROPHILS ABSOLUTE 5.91 10/3/uL (2.02-8.40); PLATELET COUNT 154 10/3/uL (150-400); RBC DISTRIBUTION WIDTH 13.3 % (12.0-16.0); RED CELL COUNT 3.35 10/6/uL (4.0-5.6); WHITE BLOOD CELLS 8.5 10/3/uL (4.5-10.5)
[2017-03-16 05:13] LABS: MANUAL DIFF NO %
[2017-03-16 05:32] LABS: CALCIUM, SERUM 8.7 MG/DL (8.5-10.4); CHLORIDE, SERUM 104 MMOL/L (96-112); CO2 (CARBON DIOXIDE) 31 MMOL/L (24-34); CREATININE 0.55 MG/DL (0.55-1.02); GFR AFRICAN AMERICAN 106 ML/MIN (>=60); GFR NON AFRICAN AMERICAN 91 ML/MIN (>=60); GLUCOSE, SERUM 98 MG/DL (60-99); POTASSIUM, SERUM 3.5 MMOL/L (3.5-5.3); SODIUM, SERUM 143 MMOL/L (135-148)
[2017-03-16 05:33] LABS: BUN (BLOOD UREA NITROGEN) 13 MG/DL (6-23)
[2017-03-17 05:39] LABS: BASOPHILS 0.1 %; BASOPHILS ABSOLUTE 0.01 10/3/uL (0.0-0.16); EOSINOPHILS 0.6 %; EOSINOPHILS ABSOLUTE 0.06 10/3/uL (0.0-0.53); HEMOGLOBIN 11.5 g/dL (12.0-16.0); IMMATURE GRANULOCYTES 0.9 %; IMMATURE GRANULOCYTES ABSOLUTE 0.09 10/3/uL (0.0-0.11); LYMPHOCYTES 19.6 %; LYMPHOCYTES ABSOLUTE 2.02 10/3/uL (0.67-4.30); MEAN CORPUS HGB CONC 32.9 g/dL (32.0-36.0); MEAN CORPUSCULAR HEMOGLOB 31.3 pg (26.0-34.0); MEAN CORPUSCULAR VOLUME 95.4 fL (80-100); MEAN PLATELET VOLUME 9.5 fL (9.2-13.0); MONOCYTES 9.4 %; MONOCYTES ABSOLUTE 0.97 10/3/uL (0.21-1.20); NEUTROPHILS 69.4 %; NEUTROPHILS ABSOLUTE 7.18 10/3/uL (2.02-8.40); RBC DISTRIBUTION WIDTH 13.3 % (12.0-16.0); RED CELL COUNT 3.67 10/6/uL (4.0-5.6); WHITE BLOOD CELLS 10.3 10/3/uL (4.5-10.5)
[2017-03-17 05:43] LABS: MANUAL DIFF NO %; PLATELET COUNT 211 10/3/uL (150-400)
[2017-03-17 05:54] LABS: BUN (BLOOD UREA NITROGEN) 11 MG/DL (6-23); CALCIUM, SERUM 8.8 MG/DL (8.5-10.4); CHLORIDE, SERUM 104 MMOL/L (96-112); CO2 (CARBON DIOXIDE) 29 MMOL/L (24-34); CREATININE 0.61 MG/DL (0.55-1.02); GFR AFRICAN AMERICAN 102 ML/MIN (>=60); GFR NON AFRICAN AMERICAN 88 ML/MIN (>=60); GLUCOSE, SERUM 109 MG/DL (60-99); POTASSIUM, SERUM 3.6 MMOL/L (3.5-5.3); SODIUM, SERUM 139 MMOL/L (135-148)
[2017-03-18 04:14] LABS: BASOPHILS 0.2 %; BASOPHILS ABSOLUTE 0.02 10/3/uL (0.0-0.16); EOSINOPHILS 0.9 %; EOSINOPHILS ABSOLUTE 0.09 10/3/uL (0.0-0.53); HEMOGLOBIN 10.1 g/dL (12.0-16.0); IMMATURE GRANULOCYTES 0.7 %; IMMATURE GRANULOCYTES ABSOLUTE 0.07 10/3/uL (0.0-0.11); LYMPHOCYTES 18.8 %; LYMPHOCYTES ABSOLUTE 1.85 10/3/uL (0.67-4.30); MEAN CORPUS HGB CONC 33.7 g/dL (32.0-36.0); MEAN CORPUSCULAR HEMOGLOB 31.9 pg (26.0-34.0); MEAN CORPUSCULAR VOLUME 94.6 fL (80-100); MEAN PLATELET VOLUME 9.2 fL (9.2-13.0); MONOCYTES 8.1 %; NEUTROPHILS 71.3 %; PLATELET COUNT 203 10/3/uL (150-400); RBC DISTRIBUTION WIDTH 13.4 % (12.0-16.0); RED CELL COUNT 3.17 10/6/uL (4.0-5.6); WHITE BLOOD CELLS 9.8 10/3/uL (4.5-10.5)
[2017-03-18 04:16] LABS: MANUAL DIFF NO %
[2017-03-18 04:31] LABS: BUN (BLOOD UREA NITROGEN) 11 MG/DL (6-23); CALCIUM, SERUM 8.2 MG/DL (8.5-10.4); CHLORIDE, SERUM 105 MMOL/L (96-112); CO2 (CARBON DIOXIDE) 32 MMOL/L (24-34); CREATININE 0.61 MG/DL (0.55-1.02); GFR AFRICAN AMERICAN 102 ML/MIN (>=60); GFR NON AFRICAN AMERICAN 88 ML/MIN (>=60); GLUCOSE, SERUM 105 MG/DL (60-99); POTASSIUM, SERUM 3.5 MMOL/L (3.5-5.3); SODIUM, SERUM 140 MMOL/L (135-148)
== END 2017-03-18 15:04 | DRG 219 ==
LOC: SDC/OF 05:11 → CVICU 13:10 → 5NO 03-12 10:43
PROVIDERS: Anesthesiology; Internal Medicine; Internal Medicine Cardiovascular Disease; Internal Medicine Nephrology; Nurse Practitioner Family; Thoracic Surgery (Cardiothoracic Vascular Surgery)
PROC: B246ZZ4 Ultrasonography of Right and Left Heart, Transesophageal (ICD-10-PCS; 2017-03-08)
PROC: 02UG0JZ Supplement Mitral Valve with Synthetic Substitute, Open Approach (ICD-10-PCS; principal; 2017-03-08 11:00)
PROC: 02UJ0JZ Supplement Tricuspid Valve with Synthetic Substitute, Open Approach (ICD-10-PCS; 2017-03-08 11:00)
PROC: 02L70DK Occlusion of Left Atrial Appendage with Intraluminal Device, Open Approach (ICD-10-PCS; 2017-03-08 11:00)
PROC: 0W9B3ZZ Drainage of Left Pleural Cavity, Percutaneous Approach (ICD-10-PCS; 2017-03-15)
DX: I34.0 Nonrheumatic mitral (valve) insufficiency (principal); N17.0 Acute kidney failure with tubular necrosis; I48.1 Persistent atrial fibrillation; I50.22 Chronic systolic (congestive) heart failure; I48.2 Chronic atrial fibrillation; D69.6 Thrombocytopenia, unspecified; I11.0 Hypertensive heart disease with heart failure; G40.909 Epilepsy, unspecified, not intractable, without status epilepticus; J90 Pleural effusion, not elsewhere classified; I36.1 Nonrheumatic tricuspid (valve) insufficiency; M06.9 Rheumatoid arthritis, unspecified; Z82.49 Family history of ischemic heart disease and other diseases of the circulatory system; Z83.3 Family history of diabetes mellitus; I95.81 Postprocedural hypotension; N99.0 Postprocedural (acute) (chronic) kidney failure; E87.6 Hypokalemia
CPT/HCPCS: 32555; 36415; 71010; 71020; 76775; 80048; 80053; 80069; 80076; 81001; 82043; 82330; 82533; 82570; 82803; 82805; 82947; 82962; 83036; 83540; 83550; 83735; 84132; 84145; 84155; 84165; 84295; 84300; 85014; 85018; 85025; 85049; 85347; 85384; 85610; 85730; 86850; 86900; 86901; 86920; 87641; 93005; 93312; 93320; 93325; 94002; 94640; 94660; 94770; 97110-GO; 97110-GP; 97116-GP; 97162-GP; 97166-GO; 97530-GP; 97535-GO; A9270-GY; C1751; C1769; J0282; J0690; J1170; J1205; J1644; J1940; J2150; J2250; J2370; J2405; J2720; J2765; J2795; J2930; J3010; J3475; J3480; P9045; P9047